=== PATIENT | male | born 1965 | race African-American/Black ===

== ENCOUNTER 2019-10-31 04:35 | Emergency (ER) | payer OTHER ==
[~2019-10-31] VITALS: Ht 170.2 cm; Wt 86.2 kg
--- NOTE | 2019-10-31 04:43 | NUR ---
PT LONNY FROM STREET C/O SUICIDIAL IDEATION WITH AUDITORY HALLUCINATIONS. PT HAS PLAN OF SHOOTING SELF WITH GUN. PT STATES HE DOES NOT CURRENTLY OWN A GUN. PT ALSO STATES HE HAS BEEN NONCOMPLIANT WITH PSYCH MEDICATIONS (ZOLOFT AND SEROQUEL) FOR ABOUT 6 MONTHS. PT AAOX4. CALM AND COOPERATIVE. VITAL SIGNS STABLE. RESPIRATIONS EVEN AND UNLABORED. AMBULATORY WITH STEADY GAIT. SUICIDE PRECAUTIONS INITIATED. PLACED IN GOWN. BELONGINGS COLLECTED AND PLACED IN PATIENT LOCKER. SITTER AT BEDSIDE, WILL CONTINUE TO MONITOR.
[2019-10-31] MEDS ORDERED: QUETIAPINE FUMARATE 100 MG TABLET PO STA (04:48)
[2019-10-31 04:57] LABS: BASOPHILS # (AUTO) 0.1 /CMM (0.0-0.2); BASOPHILS % (AUTO) 1.3 % (0.0-2.0); EOSINOPHILS % (AUTO) 4.1 % (0.0-6.0); HEMATOCRIT 42 % (39-51); HEMOGLOBIN 14.1 g/dL (13.5-17.5); LYMPHOCYTES # (AUTO) 1.3 /CMM (0.8-4.8); LYMPHOCYTES % (AUTO) 28.6 % (20.0-44.0); MEAN CORPUSCULAR HGB CONC 34 g/dl (31.0-36.0); MEAN CORPUSCULAR VOLUME 97 fL (80-96); MONOCYTES # (AUTO) 0.3 /CMM (0.1-1.30); NEUTROPHILS # (AUTO) 2.6 /CMM (1.8-8.9); PLATELET COUNT (AUTO) 113 /CMM (150-450); WHITE BLOOD COUNT (AUTO) 4.4 K/uL (4.3-11.0)
[2019-10-31] MEDS ORDERED: QUETIAPINE FUMARATE 25 MG TABLET ONE (04:59)
[2019-10-31 05:04] LABS: CALCIUM, SERUM 8.2 mg/dL (8.5-10.1); POTASSIUM 3.5 mmol/L (3.5-5.1)
[2019-10-31 05:09] LABS: ALBUMIN 3.5 g/dL (3.4-5.0); BILIRUBIN,DIRECT 0.1 mg/dL (0.0-0.2); BILIRUBIN,TOTAL 0.3 mg/dL (0.2-1.0); TOTAL PROTEIN, SERUM 8.2 g/dL (6.4-8.2)
[2019-10-31 05:10] LABS: SALICYLATE 1.3 mg/dL (2.8-20.0)
--- NOTE | 2019-10-31 05:15 | NUR ---
URINE SENT TO LAB
--- NOTE | 2019-10-31 05:15 | NUR ---
PT STATED HE WOULD LIKE TO GO TO [facility]
[2019-10-31 05:20] LABS: APPEARANCE,URINE Clear (CLEAR); BILIRUBIN,URINE Negative (NEGATIVE); BLOOD, URINE Moderate Ery/uL (NEGATIVE); COLOR,URINE Yellow (YELLOW); KETONES,URINE Negative (NEGATIVE); LEUKOCYTE ESTERASE ,URINE Negative (NEGATIVE); NITRITE, URINE Negative (NEGATIVE); PH,URINE 5.5 (5.0-8.0); PROTEIN,URINE 100 mg/dl (NEGATIVE); UGLUCOSE Negative (NEGATIVE); UROBILINOGEN,URINE 0.2 EU/dL (0.2)
[2019-10-31 05:33] LABS: BACTERIA,URINE None seen /HPF (None Seen); SQUAMOUS EPITHELIAL CELL,UR Few /HPF (None Seen); WBC,URINE 0-2 /HPF (0-3)
--- NOTE | 2019-10-31 06:13 | NUR ---
Patient is resting comfortably in bed. Easily aroused. VSS.
--- NOTE | 2019-10-31 08:52 | NUR ---
PAGED ANÉGLICA DENNIS FOR CONSULT
--- NOTE | 2019-10-31 09:17 | NUR ---
PATIENT ASLEEP, NO DISTRESS NOTED.
--- NOTE | 2019-10-31 10:00 | NUR ---
PATIENT SEEN BY ANGÉLICA DENNIS.
--- NOTE | 2019-10-31 10:00 | NUR ---
Social Service consult requested by for voluntary psychiatric admission. Per MD notes, pt is a 54-year-old male who presented to the emergency room after being brought in by EMS for evaluation of suicidal ideation, and hearing voices. The patient states that he does have a history of schizophrenia and has been off his Seroquel and his Zoloft for the past 6 months because he has been living on the streets. He states that he has a plan and wants to shoot himself but he states he does not own a gun. RUBBER AND POUNDER attempted to assess the pt, however pt is still intoxicated and unable to participate in a meaningful assessment. Pt's blood alcohol level is over 250. RUBBER AND POUNDER to reassess the pt when pt is able to participate appropriately. Forest Products Gatherer to remain available for support as needed.
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
--- NOTE | 2019-10-31 15:20 | NUR ---
EROSION CONTROL SPECIALIST contacted [facility] intake for f/u regarding referral. Per Laureen, they did receive the clinicals and nursing sterile supervisor at [facility] is reviewing it. EROSION CONTROL SPECIALIST informed Laureen to contact ED directly when pt. is accepted.
--- NOTE | 2019-10-31 16:09 | NUR ---
TRUCK JUMPER received a call from Laureen at [facility] intake stating pt has been accepted to [facility] and to send the pt at 7PM. Accepting Dr. Clay/Dr. Marques. Number for report [phone] or extension x [phone]. TRUCK JUMPER updated Mark in ED.
--- NOTE | 2019-10-31 18:56 | NUR ---
RESERVATION NUMBER [id number]. ETA FOR AMBULANCE 2000 WITH [facility].
--- NOTE | 2019-10-31 19:21 | NUR ---
Accepting Dr. Clay/Dr. Marques. Number for report x [phone] or extension x [phone]. [facility] updated Mark in ED.
[2019-10-31 19:49] VITALS: BP 125/77
--- NOTE | 2019-10-31 20:04 | NUR ---
report given to cade gannon for nathan at the [facility].
--- NOTE | 2019-10-31 20:08 | NUR ---
[facility] @ BEDSIDE FOR PT TRANSPORT TO [facility]. REPORT GIVEN. PT IS IN STABLE CONDITION FOR TRANSPORT. PT IS AMBULATORY ON STEADY GAIT
== END 2019-10-31 20:13 ==
LOC: ER 04:36
DX: T51.8X2A Toxic effect of other alcohols, intentional self-harm, initial encounter (principal); R45.851 Suicidal ideations; F20.9 Schizophrenia, unspecified; Y92.89 Other specified places as the place of occurrence of the external cause
CPT/HCPCS: 36415; 80048; 80076; 80305; 80307 ×2; 80329; 81001; 85025; 99285; G0480; 81000-TC